=== PATIENT | male | born 1970 | race Caucasian/White ===

== ENCOUNTER → 2017-10-25 06:02 | Outpatient (CLI) | payer OTHER, SELFPAY ==
--- NOTE | 2017-10-25 09:15 | STRESSREP_ITS ---
Stress Test Report Exercise myocardial perfusion stress test. 47-year-old man with a history of palpitations. Stress protocol: Resting EKG demonstrates sinus rhythm with rate of 60 bpm right bundle branch block is noted resting blood pressure is 122/82 mmHg. The patient exercised according to regular Royce protocol for total duration of 7 minutes and 30 seconds completing 1 minute and 30 seconds into stage III of the Royce protocol. The maximum heart rate attained was 184 bpm which was 106% of the maximum predicted heart rate the maximum workload attained was 9.3 metabolic equivalents. At rest there were no ST or T-wave changes noted suggest ischemia at peak exercise upsloping ST changes only were noted would not be the criteria for ischemia. No clinical angina was noted. The resting blood pressure was 122 /82 with a peak blood pressure 182/82. Rate pressure product was 31,100. Myocardial perfusion protocol. 11.3 mCi of technetium 99m sestamibi was injected at rest. The patient exercised according to regular Royce protocol for total duration of 7-1/2 minutes. The maximum workload was 9.3 metabolic equivalents. At peak exercise 33.3 mCi of technetium 99m sestamibi was injected. Stress images were obtained stress and rest images were reconstructed and compared in the short axis vertical long and horizontal long axis. Gated images were also obtained. Perfusion SPECT analysis: Review of the stress images demonstrated no perfusion defects. The stress images demonstrated normal perfusion in all areas of the myocardium the resting images similarly demonstrate normal perfusion in all areas of the myocardium. No areas of reversibility are noted suggest ischemia no previous infarct is noted. Gated SPECT analysis. The gated ejection fraction is noted to be 79%. Conclusion: Normal exercise myocardial perfusion stress test at a high workload No clinical angina noted No arrhythmias noted. Preserved ejection fraction.
== END ==
PROVIDERS: Family Provider Family Medicine; PCP Family Medicine; Visit Provider Family Medicine
DX: R00.2 Palpitations (principal)
CPT/HCPCS: 78452; 93017; A9500; A4216

== ENCOUNTER 2017-12-25 15:15 | Outpatient (RCR) | payer OTHER, SELFPAY ==
--- NOTE | 2017-12-25 15:15 | DT_ITS ---
This patient was seen during an EMR downtime December 25, 2017 - January 01, 2018. This patient may have a combination of paper and electronic documentation or all paper documentation. All documentation is viewable within the e-chart portion of [facility] for each patient visit.
--- NOTE | 2018-07-10 16:30 | DS.PCM_ITS ---
Massage Therapy Discharge Summary: Initial Evaluation: 11/03/2017 Diagnosis: Muscle pain No. of Visits: Date of last visit: 12/25/2017 This patient is being discharged from our care at the [facility]. Thank you, Kiki Garcia LMT
== END 2017-12-25 19:00 | disposition home or self-care (01) ==
LOC: MASS 15:15
PROVIDERS: Family Provider Family Medicine; PCP Family Medicine; Visit Provider Family Medicine
DX: M79.1 Myalgia (principal)
CPT/HCPCS: 97124

== ENCOUNTER → 2018-01-23 14:51 | Outpatient (CLI) | payer OTHER, SELFPAY ==
--- NOTE | 2018-01-23 14:53 | CDUL_ITS ---
Reason For Study: aneurysm Lt. Velocities/BP Prox CCA 122/32.2 cm/sec. Mid CCA 119/29.9 cm/sec. Dist CCA 105/26.7 cm/sec. Prox ICA 44.8/18.1 cm/sec. Mid ICA 83.3/24.6 cm/sec. Dist ICA 58.6/25.2 cm/sec. Lt. ICA/CCA = .7. Prox ECA 67.6/10.2 cm/sec. Lt. Vert. 44.0/10.6 cm/sec. Left Extracranial There is intimal thickening but no significant atherosclerotic plaque noted in the left common carotid artery. There is intimal thickening but no significant atherosclerotic plaque noted in the left internal carotid artery. There is intimal thickening but no significant atherosclerotic plaque noted in the left external carotid artery. Antegrade flow is noted in the left vertebral artery. Procedure Carotid Duplex [id number]. The exam was diagnostic. Exam performed in department. Prelim to Dr. Sierra's. Interpretation Summary No significant atherosclerotic plaque or stenosis noted in the left internal carotid artery. Flow within the left verterbral artery is antegrade. There is no evidence of aneurysmal dilatation within the left extracranial carotid arterial system. Ordering Physician: Eric Sierra Performed By: Meliton Ayala RVT
== END ==
PROVIDERS: Family Provider Family Medicine; PCP Family Medicine; Visit Provider Family Medicine
DX: I72.0 Aneurysm of carotid artery (principal)
CPT/HCPCS: 93882

== ENCOUNTER 2020-02-05 06:45 | Outpatient (RCR) | payer OTHER, SELFPAY ==
[2018-08-13 15:06] VITALS: BMI 23.6
--- NOTE | 2020-07-02 08:59 | MASS.DISCH ---
Massage Therapy Discharge Summary: Initial Evaluation Date: 02/05/20 Diagnosis: SHOULDER PAIN No. of Visits: ONE Date of last visit: 02/05/20 This patient is being discharged from our care at the [facility]. Thank you, Kiki Garcia LMT
== END 2020-02-05 19:00 ==
LOC: MASS 06:45
PROVIDERS: PCP Family Medicine; Visit Provider Family Medicine
DX: Z00.00 Encounter for general adult medical examination without abnormal findings (principal)
CPT/HCPCS: 97124

== ENCOUNTER → 2020-06-25 15:54 | Outpatient (CLI) | payer OTHER, SELFPAY ==
[2018-08-13 15:06] VITALS: BMI 23.6
== END ==
PROVIDERS: PCP Family Medicine; Visit Provider Family Medicine
DX: Z20.828 Contact with and (suspected) exposure to other viral communicable diseases (principal)
CPT/HCPCS: 87635; U0003

== ENCOUNTER 2021-10-14 09:11 | Outpatient (CLI) | payer OTHER, SELFPAY ==
--- NOTE | 2021-10-14 09:16 | RAD_ITS ---
STUDY: X-RAY - LEFT ELBOW REASON FOR EXAM: Male, 51 years old. Elbow pain. TECHNIQUE: 3 view(s) of the elbow. COMPARISON: None. FINDINGS: Normal visualized humerus, radius and ulna. Normal radiocapitellar and ulnotrochlear articulations. The soft tissue structures are unremarkable. RAD/Elbow min 3 Views IMPRESSION: Normal x-ray examination of the elbow. Electronically Signed: Speedy Edmondson MD at 11:06 EDT ,
== END 2021-10-14 23:59 | disposition home or self-care (01) ==
PROVIDERS: PCP Family Medicine; Referring Provider Family Medicine; Visit Provider Family Medicine
DX: M25.522 Pain in left elbow (principal)
CPT/HCPCS: 73080

== ENCOUNTER 2021-11-10 07:13 | Outpatient (CLI) | payer OTHER, SELFPAY ==
--- NOTE | 2021-11-10 07:16 | MRI_ITS ---
STUDY: MRI LEFT ELBOW REASON FOR EXAM: Left elbow pain for 5 months. TECHNIQUE: Standardized fat and water weighted pulse sequences were obtained in all 3 orthogonal planes. COMPARISON: Radiographs 10/14/2021. FINDINGS: Normal radio-capitellum articulation. Normal radial collateral ligamentous complex. There is mild tendinosis and a small low-grade undersurface partial tear of the common extensor tendon (inversion recovery coronal images 10, 11). Normal ulnotrochlear articulation. Normal ulnar collateral ligamentous complex. Normal common flexor tendon. The cubital tunnel is normal, with a normal ulnar nerve. Normal biceps tendon and distal insertion. Normal lacertus fibrosis. Normal brachialis musculotendinous insertion. Normal triceps tendon and teno-osseous insertion. Normal olecranon process. The visualized distal humerus, proximal radius, and ulna are normal. The visualized muscles of the distal arm and proximal forearm are normal. The soft tissue structures are unremarkable. MRI/Upper Ext Joint Only(Routine) IMPRESSION: Small undersurface partial tear and mild tendinosis of the common extensor tendon. Electronically Signed: Cheo Nielson MD at 9:48 EDT ,
== END 2021-11-10 23:59 | disposition home or self-care (01) ==
LOC: MRI 07:15
PROVIDERS: PCP Family Medicine; Referring Provider Family Medicine; Visit Provider Family Medicine
DX: M25.552 Pain in left hip (principal)
CPT/HCPCS: 73221

== ENCOUNTER → 2022-11-14 | Outpatient (CLI) | payer OTHER, SELFPAY ==
--- NOTE | 2022-11-14 09:21 | RAD_ITS ---
INDICATION: Cervicalgia EXAMINATION/TECHNIQUE: X-RAY - XR Spine Cervical 4 or 5 Views COMPARISON: FINDINGS: VERTEBRAE: Mild anterior osteophyte formation C4-C6. Mild right-sided neural foraminal encroachment C4-5 and C5-6. DISCS: Mild loss of disc space height C4-C6 NECK SOFT TISSUES: No prevertebral soft tissue widening. LUNG APICES: Clear. RAD/Cerv Spine 4 or 5 Views IMPRESSION: Generative changes as above. Electronically Signed: Glynn Camejo MD, CLARISSA at 18:08 EDT ,
== END | disposition home or self-care (01) ==
LOC: MTRAD 09:19
PROVIDERS: PCP Family Medicine; Referring Provider Family Medicine; Visit Provider Family Medicine
DX: M54.2 Cervicalgia (principal)
CPT/HCPCS: 72050

== ENCOUNTER → 2024-05-24 | Outpatient (CLI) | payer OTHER, SELFPAY ==
--- NOTE | 2024-05-24 15:00 | RAD_ITS ---
INDICATION: Heel pain for 5 months EXAMINATION/TECHNIQUE: X-RAY - LEFT XR Calcaneus Min 2 Views 2 VIEWS COMPARISON: None. FINDINGS: SOFT TISSUES: No soft tissue swelling or gas. No radiopaque foreign body. BONES/JOINTS: No acute fracture. Small posterior enthesophytes. Preservation of the joint space.. No sclerotic or destructive changes observed. RAD/Calcaneus min 2 Views IMPRESSION: No acute abnormality. Electronically Signed: Jesse Carver MD at 22:20 EST ,
== END | disposition home or self-care (01) ==
LOC: MTRAD 14:58
PROVIDERS: PCP Family Medicine; Referring Provider Family Medicine; Visit Provider Family Medicine
DX: M79.672 Pain in left foot (principal)
CPT/HCPCS: 73650

== ENCOUNTER → 2024-12-11 | Outpatient (CLI) | payer OTHER, SELFPAY ==
--- NOTE | 2024-12-11 14:13 | MRI_ITS ---
PROCEDURE: UPPER EXT/NO JT/ WO 12/11/2024 REASON FOR EXAM: PAIN TECHNIQUE: MRI of the right hand. Multiplanar and multisequence images were obtained without IV contrast administration. COMPARISON: COMPARISON : FINDINGS: Bone Marrow: There is no abnormal bone marrow signal. There are few intraosseous ganglion cysts in the proximal carpal row. Bone islands in the 1st and 3rd metacarpal head. Soft Tissues: Unremarkable. No intramuscular edema. Ligaments and Tendons: The collateral ligaments and flexor and extensor tendons are unremarkable, without discrete tear. No evidence of suma injury, though motion on the sagittal sequence slightly limits evaluation. There is trace fluid at the pisotriquetral joint, likely physiologic. MRI/Upper Ext/No Jt/ wo IMPRESSION: Unremarkable MRI of the right hand. Reading Location: [id number]
== END | disposition home or self-care (01) ==
PROVIDERS: PCP Family Medicine; Referring Provider Surgery Plastic and Reconstructive Surgery; Visit Provider Surgery Plastic and Reconstructive Surgery
DX: M79.641 Pain in right hand (principal)
CPT/HCPCS: 73218